=== PATIENT | male | born 1950 | race Asian ===

== ENCOUNTER 2023-05-23 19:39 | Emergency (ER) | payer MEDICARE, MEDICAID ==
[~2023-05-23] VITALS: Ht 165.1 cm; Wt 84.0 kg
[2023-05-23 19:43] VITALS: TEMP 98.3; O2SAT 95
[2023-05-23] MEDS ORDERED: IBUP-2029 MT (21:43)
[2023-05-23 22:25] VITALS: BP 159/82; PULSE 81; RESP 16
== END 2023-05-23 22:32 | disposition home or self-care (01) ==
LOC: ER 19:39
DX: M79.602 Pain in left arm (principal); I10 Essential (primary) hypertension; E78.00 Pure hypercholesterolemia, unspecified; Z98.890 Other specified postprocedural states
CPT/HCPCS: 73060; 73090; 99284